=== PATIENT | female | born 1975 | race Two or more races ===

== ENCOUNTER 2017-10-14 10:22 | Emergency (ER) | payer SELFPAY ==
[~2017-10-14] VITALS: Ht 162.6 cm; Wt 72.6 kg
[2017-10-14 10:22] VITALS: BP 134/85
[2017-10-14] MEDS ORDERED: IBUPROFEN 600 MG TABLET PO ONE (11:00)
== END 2017-10-14 11:09 | disposition home or self-care (01) ==
LOC: ER 10:25
DX: H69.82 Other specified disorders of Eustachian tube, left ear (principal); J02.8 Acute pharyngitis due to other specified organisms
CPT/HCPCS: 99283; A4606; Z7610